=== PATIENT | male | born 1980 | race Caucasian/White ===

== ENCOUNTER 2017-01-01 00:18 | Emergency (ER) | payer MEDICAID ==
[~2017-01-01] VITALS: Ht 162.6 cm; Wt 74.8 kg
[2017-01-01 00:21] VITALS: BP_SYST 130
[2017-01-01] MEDS ORDERED: KETOROLAC TROMETHAMINE 30 MG VIAL IVP ONE (00:30)
[2017-01-01] MEDS ORDERED: BACITRACIN 1 GM OINT TP ONE (00:30)
[2017-01-01 01:15] LABS: CALCIUM 8.5 mg/dL (8.4-11.0); CREATININE 1.08 mg/dL (0.55-1.30); POTASSIUM 3.7 mmol/L (3.5-5.1)
[2017-01-01 01:16] LABS: BASOPHILS # (AUTO) 0.1 K/uL (0.0-0.2); BASOPHILS % (AUTO) 0.7 % (0.0-2.0); EOSINOPHILS # (AUTO) 0.1 K/uL (0.0-0.4); EOSINOPHILS % (AUTO) 1.6 % (0.0-4.0); HEMATOCRIT 45.7 % (36-54); LYMPHOCYTES # (AUTO) 2.8 K/uL (1.0-5.5); LYMPHOCYTES % (AUTO) 36.2 % (20.5-51.5); MEAN CORPUSCULAR HEMOGLOBIN 30 pg (27-31); MEAN CORPUSCULAR HGB CONC 33 % (32-36); MEAN CORPUSCULAR VOLUME 92 fL (79.0-98.0); MONOCYTES # (AUTO) 0.9 K/uL (0.0-1.0); MONOCYTES % (AUTO) 11.1 % (1.7-9.3); NEUTROPHILS # (AUTO) 3.8 K/uL (1.8-7.7); NEUTROPHILS % (AUTO) 50.4 % (40.0-70.0); PLATELET COUNT (AUTO) 376 K/uL (130-430); RED BLOOD CELL COUNT(AUTO) 4.97 MIL/uL (4.2-6.2); RED CELL DISTRIBUTION WIDTH 13.4 % (9.0-15.0); WHITE BLOOD COUNT (AUTO) 7.7 K/uL (4.8-10.8)
[2017-01-01 01:35] VITALS: BP_SYST 130
== END 2017-01-01 01:35 | disposition home or self-care (01) ==
LOC: SED 00:18
DX: S61.411D Laceration without foreign body of right hand, subsequent encounter (principal); X58.XXXD Exposure to other specified factors, subsequent encounter; Y92.89 Other specified places as the place of occurrence of the external cause; Y99.8 Other external cause status
CPT/HCPCS: 36415; 80048; 85025; 96374; 99284; J1885

== ENCOUNTER 2018-06-06 13:22 | Inpatient (IN) | payer MEDICAID ==
[~2018-06-06] VITALS: Ht 162.6 cm; Wt 72.6 kg
[2018-06-06 13:34] VITALS: BP_SYST 129
[2018-06-06] MEDS ORDERED: NACL 0.9% 1,000 ML IV ONE ×2 (14:32→14:45)
[2018-06-06] MEDS ORDERED: PIPERACILLIN/TAZO 3.375 GM in NS 50 ML IV ONE (14:45)
[2018-06-06] MEDS ORDERED: MORPHINE 4 MG/ML INJ. SYRINGE IM ONE (14:45)
[2018-06-06 15:14] LABS: BILIRUBIN,URINE NEGATIVE (NEGATIVE); BLOOD, URINE NEGATIVE (NEGATIVE); CLARITY/URINE CLEAR (CLEAR); COLOR,URINE YELLOW (YELLOW); GLUCOSE,URINE NEGATIVE (NEGATIVE); KETONES,URINE 1+ (NEGATIVE); LEUKOCYTE ESTERASE ,URINE NEGATIVE (NEGATIVE); PROTEIN URINE 2+ (NEGATIVE)
[2018-06-06 15:15] LABS: NITRITE, URINE NEGATIVE (NEGATIVE); UROBILINOGEN,URINE 0.2 (0.2-1.0)
[2018-06-06 15:16] LABS: RED BLOOD CELL COUNT(AUTO) 5.09 MIL/uL (4.2-6.2); WHITE BLOOD COUNT (AUTO) 20.7 K/uL (4.8-10.8)
[2018-06-06 15:17] LABS: HEMATOCRIT 45.3 % (36-54); HEMOGLOBIN 15.3 g/dL (14.0-18.0); MEAN CORPUSCULAR HEMOGLOBIN 30 pg (27-31); MEAN CORPUSCULAR HGB CONC 34 % (32-36); MEAN CORPUSCULAR VOLUME 89 fL (79.0-98.0); PLATELET COUNT (AUTO) 225 K/uL (130-430); RED CELL DISTRIBUTION WIDTH 13.2 % (9.0-15.0)
[2018-06-06] MEDS ORDERED: PIPERACILLIN/TAZOBACTAM 3.375 GM/VIAL (ZOSYN) IV ONE ×2 (15:20→22:22)
[2018-06-06 15:21] LABS: CALCIUM 8.1 mg/dL (8.4-11.0); CREATININE 1.06 mg/dL (0.55-1.30); INR 1.2 (0.80-1.20); POTASSIUM 3.3 mmol/L (3.5-5.1); PROTHROMBIN TIME 12.5 SECS (9.5-12.5); RBC,URINE 0-3 /HPF (0-3); WBC,URINE 0-3 /HPF (0-3)
[2018-06-06 15:22] LABS: BACTERIA,URINE FEW /HPF (None Seen); FINE GRANULAR CASTS,URINE 0-10 /LPF (None Seen)
[2018-06-06 15:25] LABS: ALBUMIN 2.8 g/dL (3.4-4.8); TOTAL BILIRUBIN 1.1 mg/dL (0.0-1.0)
[2018-06-06] MEDS ORDERED: ONDANSETRON HCL 4 MG/2 ML VIAL IVP ONE (15:30)
[2018-06-06 15:32] LABS: BAND % (MANUAL) 9 % (0-6); LYMPHOCYTES % (MANUAL) 1 % (20-46); MONOCYTES % (MANUAL) 12 % (0-11)
[2018-06-06] MEDS ORDERED: IOHEXOL 100 ML IV ONE (15:32)
[2018-06-06 16:35] LABS: BASOPHILS % (MANUAL) 0 % (0-2); EOSINOPHILS % (MANUAL) 0 % (0-7)
[2018-06-06] MEDS ORDERED: MORPHINE 4 MG/ML INJ. SYRINGE IVP ONE ×2 (17:30→21:00)
[2018-06-06] MEDS ORDERED: PROMETHAZINE HCL 25 MG/ML AMP IVP ONE (17:45)
[2018-06-06] MEDS ORDERED: ACETAMINOPHEN 325 MG TABLET PO PRN ×2 (21:30)
[2018-06-06] MEDS ORDERED: ONDANSETRON HCL 4 MG/2 ML VIAL IVP PRN (21:30)
[2018-06-06] MEDS ORDERED: ACETAMINOPHEN 650 MG SUPP.RECT RC PRN (21:30)
[2018-06-06] MEDS ORDERED: ACETAMINOPHEN 325 MG TABLET PO ONE (21:30)
[2018-06-06] MEDS ORDERED: ACETAMINOPHEN 325 MG TABLET ONE (21:31)
[2018-06-06 22:04] VITALS: BP_SYST 117
[2018-06-06] MEDS: KCL 20 mEq in NS 1000 mL 1,000 ML IV SCH (23:12)
[2018-06-06] MEDS: PIPERACILLIN/TAZO 3.375/DEX-IS 50 ML IV SCH (23:15)
[2018-06-06] MEDS: PANTOPRAZOLE SODIUM 40 MG/VIAL (PROTONIX) IVP SCH (23:15)
[2018-06-06] MEDS: MORPHINE 4 MG/ML INJ. SYRINGE IVP PRN (23:17)
[2018-06-06 23:54] VITALS: BP_SYST 137
[2018-06-07] MEDS: PIPERACILLIN/TAZO 3.375/DEX-IS 50 ML IV SCH ×4 (03:13→21:03)
[2018-06-07] MEDS: MORPHINE 4 MG/ML INJ. SYRINGE IVP PRN ×4 (03:40→15:17)
[2018-06-07 03:54] VITALS: BP_SYST 138
[2018-06-07] MEDS ORDERED: VANCOMYCIN HCL 1 GM/NS PREMIX 250 ML IV ONE ×2 (06:45→08:00)
[2018-06-07] MEDS ORDERED: GASTROGRAFIN 120 ML ONE (08:14)
[2018-06-07 08:30] VITALS: BP_SYST 113
[2018-06-07] MEDS: PANTOPRAZOLE SODIUM 40 MG/VIAL (PROTONIX) IVP SCH ×2 (09:35→21:04)
[2018-06-07] MEDS ORDERED: KETOROLAC TROMETHAMINE 15 MG VIAL IVP ONE (10:00)
[2018-06-07] MEDS ORDERED: KETOROLAC TROMETHAMINE 15 MG VIAL IVP PRN (10:00)
[2018-06-07] MEDS: KCL 20 mEq in NS 1000 mL 1,000 ML IV SCH ×3 (10:34→21:00)
[2018-06-07] MEDS: HYDROmorphone 2 MG/ML VIAL IVP PRN ×3 (10:41→23:36)
[2018-06-07 11:06] LABS: BASOPHILS % (AUTO) 0.2 % (0.0-2.0); HEMATOCRIT 43.8 % (36-54); HEMOGLOBIN 14.7 g/dL (14.0-18.0); LYMPHOCYTES % (AUTO) 2.3 % (20.5-51.5); MEAN CORPUSCULAR HEMOGLOBIN 30 pg (27-31); MEAN CORPUSCULAR HGB CONC 34 % (32-36); MEAN CORPUSCULAR VOLUME 90 fL (79.0-98.0); MONOCYTES % (AUTO) 5.9 % (1.7-9.3); NEUTROPHILS # (AUTO) 19.3 K/uL (1.8-7.7); NEUTROPHILS % (AUTO) 91.6 % (40.0-70.0); PLATELET COUNT (AUTO) 229 K/uL (130-430); RED BLOOD CELL COUNT(AUTO) 4.87 MIL/uL (4.2-6.2); RED CELL DISTRIBUTION WIDTH 13.5 % (9.0-15.0); WHITE BLOOD COUNT (AUTO) 21.1 K/uL (4.8-10.8)
[2018-06-07 11:07] LABS: LYMPHOCYTES # (AUTO) 0.5 K/uL (1.0-5.5); MONOCYTES # (AUTO) 1.2 K/uL (0.0-1.0)
[2018-06-07 11:15] LABS: CALCIUM 7.6 mg/dL (8.4-11.0); CREATININE 1.17 mg/dL (0.55-1.30); POTASSIUM 3.3 mmol/L (3.5-5.1)
[2018-06-07 12:15] VITALS: BP_SYST 125
[2018-06-07 15:00] VITALS: BP_SYST 137
[2018-06-07] MEDS: LACTOBACILLUS RHAMNOSUS GG 1 CAP CAPSULE PO SCH ×2 (15:17→21:03)
[2018-06-07] MEDS: metroNIDAZOLE 500 MG TABLET PO SCH ×2 (15:17→21:06)
[2018-06-07 20:00] VITALS: BP_SYST 105
[2018-06-07] MEDS: VANCOMYCIN HCL 1,000 MG in NS 250 ML IV SCH (20:59)
[2018-06-07] MEDS: GABAPENTIN 300 MG CAPSULE PO SCH (21:04)
[2018-06-07] MEDS: ZOLPIDEM TARTRATE 5 MG TABLET PO PRN (23:34)
[2018-06-08] VITALS: BP_SYST 112
[2018-06-08] MEDS: PIPERACILLIN/TAZO 3.375/DEX-IS 50 ML IV SCH ×4 (03:23→23:26)
[2018-06-08] MEDS: metroNIDAZOLE 500 MG TABLET PO SCH ×3 (05:41→22:04)
[2018-06-08] MEDS: HYDROmorphone 2 MG/ML VIAL IVP PRN ×3 (05:42→18:11)
[2018-06-08 07:11] LABS: CALCIUM 7.3 mg/dL (8.4-11.0); CREATININE 0.85 mg/dL (0.55-1.30); POTASSIUM 3.4 mmol/L (3.5-5.1)
[2018-06-08 07:39] LABS: HEMATOCRIT 39.7 % (36-54); HEMOGLOBIN 13.3 g/dL (14.0-18.0); MEAN CORPUSCULAR HEMOGLOBIN 30 pg (27-31); MEAN CORPUSCULAR HGB CONC 34 % (32-36); MEAN CORPUSCULAR VOLUME 90 fL (79.0-98.0); PLATELET COUNT (AUTO) 202 K/uL (130-430); RED CELL DISTRIBUTION WIDTH 13.7 % (9.0-15.0)
[2018-06-08 07:40] LABS: BASOPHILS # (AUTO) 0.1 K/uL (0.0-0.2); BASOPHILS % (AUTO) 0.3 % (0.0-2.0); EOSINOPHILS % (AUTO) 0.1 % (0.0-4.0); LYMPHOCYTES % (AUTO) 4.8 % (20.5-51.5); MONOCYTES # (AUTO) 1.4 K/uL (0.0-1.0); MONOCYTES % (AUTO) 6.7 % (1.7-9.3); NEUTROPHILS # (AUTO) 18.5 K/uL (1.8-7.7); NEUTROPHILS % (AUTO) 88.1 % (40.0-70.0)
[2018-06-08 08:09] VITALS: BP_SYST 103
[2018-06-08] MEDS: MORPHINE 4 MG/ML INJ. SYRINGE IVP PRN ×3 (08:48→22:08)
[2018-06-08] MEDS: PANTOPRAZOLE SODIUM 40 MG/VIAL (PROTONIX) IVP SCH ×2 (08:48→22:05)
[2018-06-08] MEDS: KCL 20 mEq in NS 1000 mL 1,000 ML IV SCH ×3 (08:49→17:00)
[2018-06-08] MEDS: LACTOBACILLUS RHAMNOSUS GG 1 CAP CAPSULE PO SCH ×2 (08:49→22:04)
[2018-06-08] MEDS: POTASSIUM CHLORIDE 20 MEQ TAB.PRT.SR PO SCH (08:50)
[2018-06-08] MEDS: GABAPENTIN 300 MG CAPSULE PO SCH ×3 (09:00→21:00)
[2018-06-08] MEDS: VANCOMYCIN HCL 1,000 MG in NS 250 ML IV SCH ×2 (09:59→20:50)
[2018-06-08] MEDS: BACLOFEN 10 MG TABLET PO PRN (10:23)
[2018-06-08 20:00] VITALS: BP_SYST 106
[2018-06-08] MEDS: ZOLPIDEM TARTRATE 5 MG TABLET PO PRN (23:32)
[2018-06-09] VITALS: BP_SYST 107
[2018-06-09] MEDS: KCL 20 mEq in NS 1000 mL 1,000 ML IV SCH ×3 (00:19→17:14)
[2018-06-09] MEDS: HYDROmorphone 2 MG/ML VIAL IVP PRN ×4 (00:32→21:04)
[2018-06-09] MEDS: PIPERACILLIN/TAZO 3.375/DEX-IS 50 ML IV SCH ×4 (03:57→21:03)
[2018-06-09] MEDS: metroNIDAZOLE 500 MG TABLET PO SCH ×3 (06:32→21:03)
[2018-06-09 07:06] LABS: ALBUMIN 1.9 g/dL (3.4-4.8); CALCIUM 7.6 mg/dL (8.4-11.0); CREATININE 0.73 mg/dL (0.55-1.30); POTASSIUM 3.6 mmol/L (3.5-5.1); TOTAL BILIRUBIN 0.7 mg/dL (0.0-1.0)
[2018-06-09 07:08] LABS: WHITE BLOOD COUNT (AUTO) 16.9 K/uL (4.8-10.8)
[2018-06-09 07:09] LABS: BASOPHILS % (AUTO) 0.5 % (0.0-2.0); EOSINOPHILS % (AUTO) 0.7 % (0.0-4.0); HEMATOCRIT 39.1 % (36-54); HEMOGLOBIN 13.1 g/dL (14.0-18.0); LYMPHOCYTES # (AUTO) 1.1 K/uL (1.0-5.5); LYMPHOCYTES % (AUTO) 6.3 % (20.5-51.5); MEAN CORPUSCULAR HEMOGLOBIN 30 pg (27-31); MEAN CORPUSCULAR HGB CONC 34 % (32-36); MEAN CORPUSCULAR VOLUME 91 fL (79.0-98.0); MONOCYTES % (AUTO) 7.8 % (1.7-9.3); NEUTROPHILS # (AUTO) 14.3 K/uL (1.8-7.7); NEUTROPHILS % (AUTO) 84.7 % (40.0-70.0); PLATELET COUNT (AUTO) 251 K/uL (130-430); RED BLOOD CELL COUNT(AUTO) 4.32 MIL/uL (4.2-6.2); RED CELL DISTRIBUTION WIDTH 13.5 % (9.0-15.0)
[2018-06-09 07:10] LABS: BASOPHILS # (AUTO) 0.1 K/uL (0.0-0.2); EOSINOPHILS # (AUTO) 0.1 K/uL (0.0-0.4); MONOCYTES # (AUTO) 1.3 K/uL (0.0-1.0)
[2018-06-09 08:30] VITALS: BP_SYST 108
[2018-06-09] MEDS: GABAPENTIN 300 MG CAPSULE PO SCH ×3 (08:59→21:03)
[2018-06-09] MEDS: POTASSIUM CHLORIDE 20 MEQ TAB.PRT.SR PO SCH (09:00)
[2018-06-09] MEDS: LACTOBACILLUS RHAMNOSUS GG 1 CAP CAPSULE PO SCH ×2 (09:00→21:03)
[2018-06-09] MEDS: PANTOPRAZOLE SODIUM 40 MG/VIAL (PROTONIX) IVP SCH ×2 (09:00→21:03)
[2018-06-09] MEDS: VANCOMYCIN HCL 1,000 MG in NS 250 ML IV SCH ×2 (09:49→17:14)
[2018-06-09 13:32] VITALS: BP_SYST 105
[2018-06-09 15:50] VITALS: BP_SYST 98
[2018-06-09] MEDS: ZOLPIDEM TARTRATE 5 MG TABLET PO PRN (21:09)
[2018-06-09 21:19] VITALS: BP_SYST 102
[2018-06-10] MEDS: METOCLOPRAMIDE HCL 10 MG/2 ML VIAL IVP SCH ×5 (00:28→23:49)
[2018-06-10] MEDS: VANCOMYCIN HCL 1,000 MG in NS 250 ML IV SCH (00:30)
[2018-06-10 00:32] VITALS: BP_SYST 94
[2018-06-10] MEDS: PIPERACILLIN/TAZO 3.375/DEX-IS 50 ML IV SCH ×4 (03:21→20:20)
[2018-06-10] MEDS: KCL 20 mEq in NS 1000 mL 1,000 ML IV SCH ×2 (03:21→13:24)
[2018-06-10] MEDS: metroNIDAZOLE 500 MG TABLET PO SCH ×4 (05:45→21:13)
[2018-06-10] MEDS: HYDROmorphone 2 MG/ML VIAL IVP PRN ×2 (05:46→19:31)
[2018-06-10 07:08] LABS: HEMOGLOBIN 14.5 g/dL (14.0-18.0); WHITE BLOOD COUNT (AUTO) 12.7 K/uL (4.8-10.8)
[2018-06-10 07:09] LABS: HEMATOCRIT 43.4 % (36-54); MEAN CORPUSCULAR HEMOGLOBIN 30 pg (27-31); MEAN CORPUSCULAR HGB CONC 33 % (32-36); MEAN CORPUSCULAR VOLUME 90 fL (79.0-98.0); PLATELET COUNT (AUTO) 359 K/uL (130-430); RED CELL DISTRIBUTION WIDTH 14.2 % (9.0-15.0)
[2018-06-10 07:19] LABS: CALCIUM 7.8 mg/dL (8.4-11.0); CREATININE 0.78 mg/dL (0.55-1.30); POTASSIUM 3.7 mmol/L (3.5-5.1)
[2018-06-10 07:37] LABS: ALBUMIN 2.1 g/dL (3.4-4.8); TOTAL BILIRUBIN 0.5 mg/dL (0.0-1.0)
[2018-06-10 08:00] VITALS: BP_SYST 106
[2018-06-10] MEDS: PANTOPRAZOLE SODIUM 40 MG/VIAL (PROTONIX) IVP SCH ×2 (08:16→20:20)
[2018-06-10] MEDS: LACTOBACILLUS RHAMNOSUS GG 1 CAP CAPSULE PO SCH ×2 (08:26→20:20)
[2018-06-10] MEDS: POTASSIUM CHLORIDE 20 MEQ TAB.PRT.SR PO SCH (08:27)
[2018-06-10] MEDS: GABAPENTIN 300 MG CAPSULE PO SCH ×3 (08:27→20:20)
[2018-06-10] MEDS ORDERED: DIATR MEGLU/DIATRIZ SOD 30 ML SOLUTION PO ONE (09:10)
[2018-06-10 09:14] LABS: NEUTROPHILS % (AUTO) 80.8 % (40.0-70.0)
[2018-06-10 09:15] LABS: BASOPHILS # (AUTO) 0.1 K/uL (0.0-0.2); BASOPHILS % (AUTO) 0.6 % (0.0-2.0); EOSINOPHILS # (AUTO) 0.2 K/uL (0.0-0.4); EOSINOPHILS % (AUTO) 1.5 % (0.0-4.0); LYMPHOCYTES # (AUTO) 1.1 K/uL (1.0-5.5); MONOCYTES % (AUTO) 8.1 % (1.7-9.3); NEUTROPHILS # (AUTO) 10.3 K/uL (1.8-7.7)
[2018-06-10 10:11] LABS: ERYTHROCYTE SEDIMENTATION RATE 57 MM/HR (0-15)
[2018-06-10] MEDS ORDERED: IOHEXOL 100 ML IV ONE (11:19)
[2018-06-10 13:01] VITALS: BP_SYST 109
[2018-06-10 16:36] VITALS: BP_SYST 105
[2018-06-10] MEDS: VANCOMYCIN HCL 1,250 MG in NS 250 ML IV SCH (17:37)
[2018-06-10] MEDS: TAMSULOSIN HCL 0.4 MG CAP PO SCH (20:20)
[2018-06-10] MEDS: HALOPERIDOL 5 MG TABLET (HALDOL) PO SCH (20:21)
[2018-06-10] MEDS: ZOLPIDEM TARTRATE 5 MG TABLET PO PRN (20:21)
[2018-06-11 00:18] VITALS: BP_SYST 103
[2018-06-11] MEDS: VANCOMYCIN HCL 1,250 MG in NS 250 ML IV SCH ×3 (02:38→18:00)
[2018-06-11] MEDS: KCL 20 mEq in NS 1000 mL 1,000 ML IV SCH ×2 (02:39→18:01)
[2018-06-11] MEDS: PIPERACILLIN/TAZO 3.375/DEX-IS 50 ML IV SCH ×4 (03:55→21:05)
[2018-06-11] MEDS: HYDROmorphone 2 MG/ML VIAL IVP PRN ×2 (03:56→18:00)
[2018-06-11] MEDS: metroNIDAZOLE 500 MG TABLET PO SCH ×3 (05:59→21:02)
[2018-06-11] MEDS: METOCLOPRAMIDE HCL 10 MG/2 ML VIAL IVP SCH ×3 (06:00→18:00)
[2018-06-11 07:02] LABS: CALCIUM 8.2 mg/dL (8.4-11.0); CREATININE 0.79 mg/dL (0.55-1.30); POTASSIUM 4.4 mmol/L (3.5-5.1)
[2018-06-11 07:09] LABS: EOSINOPHILS % (AUTO) 1.7 % (0.0-4.0); HEMATOCRIT 41.7 % (36-54); LYMPHOCYTES % (AUTO) 14.9 % (20.5-51.5); MEAN CORPUSCULAR HEMOGLOBIN 31 pg (27-31); MEAN CORPUSCULAR HGB CONC 34 % (32-36); MEAN CORPUSCULAR VOLUME 91 fL (79.0-98.0); MONOCYTES % (AUTO) 10.7 % (1.7-9.3); PLATELET COUNT (AUTO) 414 K/uL (130-430); RED BLOOD CELL COUNT(AUTO) 4.59 MIL/uL (4.2-6.2); WHITE BLOOD COUNT (AUTO) 11.4 K/uL (4.8-10.8)
[2018-06-11 07:10] LABS: BASOPHILS # (AUTO) 0.1 K/uL (0.0-0.2); BASOPHILS % (AUTO) 0.7 % (0.0-2.0); EOSINOPHILS # (AUTO) 0.2 K/uL (0.0-0.4); LYMPHOCYTES # (AUTO) 1.7 K/uL (1.0-5.5); MONOCYTES # (AUTO) 1.2 K/uL (0.0-1.0); NEUTROPHILS # (AUTO) 8.2 K/uL (1.8-7.7)
[2018-06-11 08:00] VITALS: BP_SYST 133
[2018-06-11 08:11] LABS: IMMUNOGLOBULIN A, SERUM 307 mg/dL (90-386)
[2018-06-11] MEDS: PANTOPRAZOLE SODIUM 40 MG/VIAL (PROTONIX) IVP SCH ×2 (08:47→21:01)
[2018-06-11] MEDS: LACTOBACILLUS RHAMNOSUS GG 1 CAP CAPSULE PO SCH ×2 (08:48→21:01)
[2018-06-11] MEDS: POTASSIUM CHLORIDE 20 MEQ TAB.PRT.SR PO SCH (08:48)
[2018-06-11] MEDS: TAMSULOSIN HCL 0.4 MG CAP PO SCH ×2 (08:48→21:01)
[2018-06-11] MEDS: GABAPENTIN 300 MG CAPSULE PO SCH ×3 (08:48→21:02)
[2018-06-11] MEDS: HALOPERIDOL 5 MG TABLET (HALDOL) PO SCH ×3 (08:48→21:01)
[2018-06-11] MEDS: BACLOFEN 10 MG TABLET PO PRN (12:02)
[2018-06-11 12:08] VITALS: BP_SYST 108
[2018-06-11 16:00] VITALS: BP_SYST 103
[2018-06-11 18:13] VITALS: BP_SYST 105
[2018-06-11 20:58] VITALS: BP_SYST 115
[2018-06-11] MEDS: ZOLPIDEM TARTRATE 5 MG TABLET PO PRN (21:05)
[2018-06-12] MEDS: METOCLOPRAMIDE HCL 10 MG/2 ML VIAL IVP SCH ×2 (00:40→05:51)
[2018-06-12] MEDS: VANCOMYCIN HCL 1,250 MG in NS 250 ML IV SCH ×2 (00:41→10:22)
[2018-06-12] MEDS: PIPERACILLIN/TAZO 3.375/DEX-IS 50 ML IV SCH ×2 (03:28→09:00)
[2018-06-12 03:31] VITALS: BP_SYST 99
[2018-06-12] MEDS: metroNIDAZOLE 500 MG TABLET PO SCH (05:51)
[2018-06-12 07:17] LABS: RED BLOOD CELL COUNT(AUTO) 4.82 MIL/uL (4.2-6.2)
[2018-06-12 07:18] LABS: HEMATOCRIT 43.9 % (36-54); HEMOGLOBIN 14.5 g/dL (14.0-18.0); LYMPHOCYTES % (AUTO) 18.7 % (20.5-51.5); MEAN CORPUSCULAR HEMOGLOBIN 30 pg (27-31); MEAN CORPUSCULAR HGB CONC 33 % (32-36); MEAN CORPUSCULAR VOLUME 91 fL (79.0-98.0); MONOCYTES % (AUTO) 13.8 % (1.7-9.3); NEUTROPHILS % (AUTO) 64.9 % (40.0-70.0); PLATELET COUNT (AUTO) 499 K/uL (130-430); RED CELL DISTRIBUTION WIDTH 13.9 % (9.0-15.0)
[2018-06-12 07:19] LABS: BASOPHILS # (AUTO) 0.1 K/uL (0.0-0.2); BASOPHILS % (AUTO) 0.9 % (0.0-2.0); EOSINOPHILS # (AUTO) 0.2 K/uL (0.0-0.4); EOSINOPHILS % (AUTO) 1.7 % (0.0-4.0); LYMPHOCYTES # (AUTO) 1.9 K/uL (1.0-5.5); MONOCYTES # (AUTO) 1.4 K/uL (0.0-1.0); NEUTROPHILS # (AUTO) 6.5 K/uL (1.8-7.7)
[2018-06-12 07:25] LABS: CALCIUM 8.4 mg/dL (8.4-11.0); CREATININE 0.81 mg/dL (0.55-1.30); POTASSIUM 4.1 mmol/L (3.5-5.1)
[2018-06-12 08:00] VITALS: BP_SYST 115
[2018-06-12] MEDS: POTASSIUM CHLORIDE 20 MEQ TAB.PRT.SR PO SCH (09:00)
[2018-06-12] MEDS: TAMSULOSIN HCL 0.4 MG CAP PO SCH (09:00)
[2018-06-12] MEDS: HALOPERIDOL 5 MG TABLET (HALDOL) PO SCH (09:00)
[2018-06-12] MEDS: LACTOBACILLUS RHAMNOSUS GG 1 CAP CAPSULE PO SCH (09:00)
[2018-06-12] MEDS: PANTOPRAZOLE SODIUM 40 MG/VIAL (PROTONIX) IVP SCH (09:00)
[2018-06-12] MEDS: GABAPENTIN 300 MG CAPSULE PO SCH (09:01)
[2018-06-12] MEDS: HYDROmorphone 2 MG/ML VIAL IVP PRN (09:09)
[2018-06-12 12:49] VITALS: BP_SYST 107
[2018-06-12 13:31] VITALS: BP_SYST 107
[2018-06-12 14:10] LABS: ATYPICAL pANCA <1:20 titer (Neg:<1:20); CYTOPLASMIC (C-ANCA) <1:20 titer (Neg:<1:20); CYTOPLASMIC (P-ANCA) <1:20 titer (Neg:<1:20)
[2018-06-14 16:06] LABS: TRANSGLUTAMINASE IGA < 2 U/mL (0-3)
[2018-06-15 12:03] LABS: ENDOMYSIAL ANTIBODY IGA NEGATIVE (NEGATIVE)
== END 2018-06-12 14:26 | disposition home or self-care (01) | DRG 720 ==
LOC: SED 13:22 → STU 21:01 → SMU 06-09 17:16
PROVIDERS: ADMIT Internal Medicine; ATTEND Internal Medicine
DX: A41.9 Sepsis, unspecified organism (principal); E87.1 Hypo-osmolality and hyponatremia; N13.30 Unspecified hydronephrosis; K56.7 Ileus, unspecified; N31.9 Neuromuscular dysfunction of bladder, unspecified; N12 Tubulo-interstitial nephritis, not specified as acute or chronic; E87.6 Hypokalemia; K21.9 Gastro-esophageal reflux disease without esophagitis; K52.9 Noninfective gastroenteritis and colitis, unspecified; R33.8 Other retention of urine
CPT/HCPCS: 36415; 74018; 74250-TC; 80048; 80053; 80202-TC; 81000-TC; 82150-TC; 82272; 82784; 83516; 83605; 83690-TC; 85007; 85025; 85027; 85610-TC; 85651-TC; 86255; 86256; 87040-TC; 87045-TC; 87046; 87230-TC; 89055; 93005; 96361; 96365; 96375; 96376; 99285; C9113; G0378; J1170; J2270; J2405; J2543; J2550; J2765; J3370; J3480; J7030; J7050; J7060; Q9963; Q9964; Q9967